=== PATIENT | female | born 1995 | race Two or more races ===

== ENCOUNTER 2016-10-02 12:13 | Emergency (ER) | payer MEDICAID ==
--- NOTE | 2016-10-02 12:50 | ER Document Report ---
ED Medical Screen (RME) - General Stated Complaint: LEG PAIN Mode of Arrival: Ambulatory Information source: Patient Notes: She presents to the emergency department with complaints of right leg pain. No other symptoms patient reports pain and back and leg I have greeted and performed a rapid initial assessment of this patient. A comprehensive ED assessment and evaluation of the patient, analysis of test results and completion of the medical decision making process will be conducted by additional ED providers. TRAVEL OUTSIDE OF THE [place] IN LAST 30 DAYS: No - Related Data Allergies/Adverse Reactions: No Known Allergies Allergy (Verified 06/15/15 23:43) Past Medical History Pulmonary Medical History: Reports: Hx Bronchitis Past Surgical History: Reports: Hx Tonsillectomy - Immunizations Hx Diphtheria, Pertussis, Tetanus Vaccination: Yes Physical Exam - Vital signs Vitals: Temp Pulse Resp BP Pulse Ox 98.1 F 76 16 141/61 H 100 10/02/16 12:18 10/02/16 12:18 10/02/16 12:18 10/02/16 12:18 10/02/16 12:18 Course - Vital Signs Vital signs: Temp Pulse Resp BP Pulse Ox 98.1 F 76 16 141/61 H 100 10/02/16 12:18 10/02/16 12:18 10/02/16 12:18 10/02/16 12:18 10/02/16 12:18
[2016-10-02] MEDS ORDERED: ACETAMINOPHEN 325 MG TABLET PO ONE (14:05)
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
[2016-10-02 15:07] VITALS: BP 138/74
== END 2016-10-02 15:06 | disposition home or self-care (01) ==
LOC: ER 12:13
DX: M79.661 Pain in right lower leg (principal)
CPT/HCPCS: 99283; 73552; J3490

== ENCOUNTER 2016-12-31 08:25 | Emergency (ER) | payer MEDICAID ==
[2016-12-31] MEDS ORDERED: ACETAMINOPHEN 325 MG TABLET PO ONE (09:43)
--- NOTE | 2016-12-31 09:44 | ER Document Report ---
HPI - HPI Patient complains to provider of: cough Onset: Other Onset/Duration: Persistent - 4 days Quality of pain: Achy Pain Level: 3 Context: Patient complains of a four-day history of cough. Patient reports low-grade fever 99.5 at home. Patient denies any sore throat or ear pain. Associated Symptoms: Nonproductive cough. denies: Fever Exacerbated by: Denies Relieved by: Denies Similar symptoms previously: Yes Recently seen / treated by doctor: No - ROS ROS below otherwise negative: Yes Systems Reviewed and Negative: Yes All other systems reviewed and negative - CONSTITUTIONAL Constitutional: DENIES: Fever - EENT EENT: DENIES: Congestion - CARDIOVASCULAR Cardiovascular: DENIES: Chest pain - RESPIRATORY Respiratory: REPORTS: Coughing. DENIES: Trouble Breathing - GASTROINTESTINAL Gastrointestinal: DENIES: Nausea, Patient vomiting, Diarrhea - MUSCULOSKELETAL Musculoskeletal: DENIES: Back Pain - DERM Skin Color: Normal, [place] Skin Problems: None Past Medical History - General Information source: Patient - Social History Smoking Status: Never Smoker Chew tobacco use (# tins/day): No Frequency of alcohol use: None Drug Abuse: None Occupation: none Lives with: Family Family History: Reviewed & Not Pertinent - Medical History Medical History: Negative Pulmonary Medical History: Reports: Hx Bronchitis Renal/ Medical History: Denies: Hx Peritoneal Dialysis Surgical Hx: Negative Past Surgical History: Reports: Hx Tonsillectomy - Immunizations Hx Diphtheria, Pertussis, Tetanus Vaccination: Yes Vertical Provider Document - CONSTITUTIONAL Agree With Documented VS: Yes Exam Limitations: No Limitations General Appearance: WD/WN, No Apparent Distress - INFECTION CONTROL TRAVEL OUTSIDE OF THE [place] IN LAST 30 DAYS: No - HEENT HEENT: Atraumatic, Normocephalic. negative: Pharyngeal Exudate, Pharyngeal Tenderness, Pharyngeal Erythema, Tympanic Membrane Red, Tympanic Membrane Bulging - NECK Neck: Normal Inspection, Supple. negative: Lymphadenopathy-Left, Lymphadenopathy-Right - RESPIRATORY Respiratory: No Respiratory Distress, Rhonchi. negative: Chest Non-Tender O2 Sat by Pulse Oximetry: 99 - CARDIOVASCULAR Cardiovascular: Regular Rate, Regular Rhythm, No Murmur - BACK Back: Normal Inspection. negative: CVA Tenderness-Right, CVA Tenderness-Left - MUSCULOSKELETAL/EXTREMETIES Musculoskeletal/Extremeties: MAEW - NEURO Level of Consciousness: Awake, Alert, Appropriate Motor/Sensory: No Motor Deficit - DERM Integumentary: Warm, Dry, No Rash Course - Vital Signs Vital signs: Temp Pulse Resp BP Pulse Ox 98.1 F 89 16 145/71 H 99 12/31/16 08:30 12/31/16 08:30 12/31/16 08:30 12/31/16 08:30 12/31/16 08:30 - Diagnostic Test Radiology reviewed: Reports reviewed Discharge - Discharge Clinical Impression: Elevated blood pressure reading Upper respiratory infection Qualifiers: URI type: unspecified URI Qualified Code(s): J06.9 - Acute upper respiratory infection, unspecified Chest pain Qualifiers: Chest pain type: unspecified Qualified Code(s): R07.9 - Chest pain, unspecified Condition: Stable Disposition: HOME, SELF-CARE Instructions: Upper Respiratory Illness ([facility]), Acetaminophen, Chest Wall Pain ( [facility]) Additional Instructions: Return immediately for any new or worsening symptoms Followup with your primary care provider, call tomorrow to make a followup appointment Your blood pressure was mildly elevated today, recheck with your primary doctor in 2 days to have this reevaluated Prescriptions: Benzonatate [Tessalon Perle 100 mg Capsule] 100 mg PO Q8HP PRN #20 cap PRN Reason: Naproxen [Naprosyn 250 Nmg Tablet] 1 tab PO BID #14 tablet Forms: Elevated Blood Pressure Referrals: [facility] [Provider Group] - Follow up tomorrow
[2016-12-31 10:54] VITALS: BP 129/65
== END 2016-12-31 10:54 | disposition home or self-care (01) ==
LOC: ER 08:25
DX: J06.9 Acute upper respiratory infection, unspecified (principal); R03.0 Elevated blood-pressure reading, without diagnosis of hypertension; R07.9 Chest pain, unspecified; R05 Cough; R50.9 Fever, unspecified
CPT/HCPCS: 99283; 71020; J3490

== ENCOUNTER 2017-02-07 16:07 | Emergency (ER) | payer MEDICAID, OTHER ==
[2017-02-07 16:32] VITALS: BP 147/68
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
[2017-02-07] MEDS ORDERED: ACETAMINOPHEN 325 MG TABLET PO ONE (20:55)
== END 2017-02-07 21:15 | disposition home or self-care (01) ==
LOC: ER 16:07
DX: S80.01XA Contusion of right knee, initial encounter (principal); M25.561 Pain in right knee; V47.6XXA Car passenger injured in collision with fixed or stationary object in traffic accident, initial encounter
CPT/HCPCS: 99283; 73562; J3490

== ENCOUNTER 2017-03-05 19:08 | Emergency (ER) | payer OTHER, MEDICAID ==
--- NOTE | 2017-03-05 19:44 | ER Document Report ---
ED Psych Disorder / Suicide - General Mode of Arrival: Ambulatory Information source: Patient TRAVEL OUTSIDE OF THE [place] IN LAST 30 DAYS: No - HPI Patient complains to provider of: Suicidal ideation, Suicidal plan Onset: This afternoon Situational problems related to: Parent Associated symptoms: Other - see notes above <CARLA PERRY - Last Filed: 03/05/17 19:49> <LANCE HOLCOMB - Last Filed: 03/05/17 21:37> - General Chief Complaint: Suicidal Ideation Stated Complaint: SUICIDAL IDEATION Time Seen by Provider: 03/05/17 19:35 Notes: 21 year old female with history of depression presents to the ED complaining of suicidal ideation and plan that started earlier this afternoon after having an argument with her mother. Patient reports that she was told to 'get out' by her mother. Patient states that she had a plan to take pills that were in her purse , but did not take anything. Patient has previously overdosed on 2 different medications last year. Patient is complaining of a headache and bruising to the right leg secondary to a fall that she suffered recently. Patient does not have a counselor and is not on any medications for her depression. Patient requests that her mother not be allowed to see her and would instead like to call her best friend. (CARLA PERRY) - Related Data Allergies/Adverse Reactions: dextromethorphan [From Delsym] Allergy (Verified 03/05/17 19:17) Past Medical History - General Information source: Patient - Social History Smoking Status: Unknown if Ever Smoked Family History: Reviewed & Not Pertinent Pulmonary Medical History: Reports: Hx Bronchitis Renal/ Medical History: Denies: Hx Peritoneal Dialysis Psychiatric Medical History: Reports: Hx Depression Past Surgical History: Reports: Hx Tonsillectomy - Immunizations Hx Diphtheria, Pertussis, Tetanus Vaccination: Yes <CARLA PERRY - Last Filed: 03/05/17 19:49> Review of Systems - Review of Systems Constitutional: No symptoms reported EENT: No symptoms reported Cardiovascular: No symptoms reported Respiratory: No symptoms reported Gastrointestinal: No symptoms reported Genitourinary: No symptoms reported Female Genitourinary: No symptoms reported Musculoskeletal: See HPI, Other - bruising to the right leg Skin: No symptoms reported Hematologic/Lymphatic: No symptoms reported Neurological/Psychological: See HPI, Headaches, Suicidal ideation - with plan -: Yes All other systems reviewed and negative <CARLA PERRY - Last Filed: 03/05/17 19:49> Physical Exam - Vital signs Interpretation: Normal - General General appearance: Appears well, Alert - HEENT Head: Normocephalic, Atraumatic Eyes: Normal Pupils: PERRL - Respiratory Respiratory status: No respiratory distress Chest status: Nontender Breath sounds: Normal Chest palpation: Normal - Cardiovascular Rhythm: Regular Heart sounds: Normal auscultation Murmur: No - Abdominal Inspection: Normal Distension: No distension Bowel sounds: Normal Tenderness: Nontender Organomegaly: No organomegaly - Back Back: Normal, Nontender - Extremities General upper extremity: Normal inspection, Nontender, Normal color, Normal ROM , Normal temperature General lower extremity: Normal inspection, Nontender, Normal color, Normal ROM , Normal temperature, Normal weight bearing. No: Benedict's sign - Neurological Neuro grossly intact: Yes Cognition: Normal Orientation: AAOx4 Riky Coma Scale Eye Opening: Spontaneous [place] Coma Scale Verbal: Oriented [place] Coma Scale Motor: Obeys Commands Riky Coma Scale Total: 15 Speech: Normal Motor strength normal: LUE, RUE, LLE, RLE Sensory: Normal - Psychological Associated symptoms: Flat affect, Tearful - Skin Skin Temperature: Warm Skin Moisture: Dry Skin Color: Normal <LANCE HOLCOMB - Last Filed: 03/05/17 21:37> - Vital signs Vitals: Temp Pulse Resp BP Pulse Ox 99.1 F 98 15 127/69 H 98 03/05/17 19:18 03/05/17 19:18 03/05/17 19:18 03/05/17 19:18 03/05/17 19:18 Course <CARLA PERRY - Last Filed: 03/05/17 19:49> - Laboratory Result Diagrams: 03/05/17 19:54 03/05/17 19:26 <LANCE HOLCOMB - Last Filed: 03/05/17 21:37> - Re-evaluation Re-evalutation: 03/05/17 Patient is a 21-year-old female who states that she is suicidal with a plan to overdose on pills. Patient states that she has done this in the past. Patient is not currently seeing anyone for mental health. She does not have a counselor. She is not on any medication. Patient is still tearful and states she is suicidal at this time. She is medically stable. Patient will be placed on involuntary commitment paperwork and be evaluated by mental health in the morning. (LANCE HOLCOMB) - Vital Signs Vital signs: Temp Pulse Resp BP Pulse Ox 99.1 F 98 15 127/69 H 98 03/05/17 19:18 03/05/17 19:18 03/05/17 19:18 03/05/17 19:18 03/05/17 19:18 - Laboratory Laboratory results interpreted by me: 03/05/17 19:26 AST 11 L Salicylates < 1.0 L Acetaminophen < 10 L Discharge <CARLA PERRY - Last Filed: 03/05/17 19:49> <LANCE HOLCOMB - Last Filed: 03/05/17 21:37> - Discharge Clinical Impression: Suicidal ideation Condition: Stable Disposition: PSYCH HOSP/UNIT Scribe Attestation: 03/05/17 21:37 I personally performed the services described in the documentation, reviewed and edited the documentation which was dictated to the scribe in my presence, and it accurately records my words and actions. (LANCE HOLCOMB) Scribe Documentation - Scribe Written by Brain:: Brain Paul, 03/05/20171952 acting as scribe for :: Shraddha <CARLA PERRY - Last Filed: 03/05/17 19:49>
[2017-03-05 20:48] LABS: ABSOLUTE EOSINOPHILS # (AUTO) 0.1 10^3/uL (0.0-0.6); ABSOLUTE LYMPHOCYTES (AUTO) 2.3 10^3/uL (0.5-4.7); ABSOLUTE MONOCYTES (AUTO) 0.5 10^3/uL (0.1-1.4); ABSOLUTE NEUT (AUTO) 5.6 10^3/uL (1.7-8.2); BASOPHILS % (AUTO) 0.3 % (0-2); EOSINOPHILS % (AUTO) 0.6 % (0-6); HEMATOCRIT 39.4 % (36.0-47.0); HEMOGLOBIN 13.3 g/dL (12.0-15.5); HGB HCT DIFFERENCE 0.5; LYMPHOCYTES % (AUTO) 27.2 % (13-45); MEAN CORPUSCULAR HEMOGLOBIN 28.1 pg (27.0-33.4); MEAN CORPUSCULAR HGB CONC 33.6 g/dL (32.0-36.0); MEAN CORPUSCULAR VOLUME 84 fl (80-97); MONOCYTES % (AUTO) 5.8 % (3-13); RED BLOOD COUNT 4.71 10^6/uL (3.72-5.28); RED CELL DISTRIBUTION WIDTH 12.5 % (11.5-14.0); SEGMENTED NEUTROPHILS % (AUTO) 66.1 % (42-78); WHITE BLOOD COUNT 8.4 10^3/uL (4.0-10.5)
[2017-03-05 20:53] LABS: ALANINE AMINOTRANSFERASE 27 U/L (9-52); ALBUMIN 4.3 g/dL (3.5-5.0); ALKALINE PHOSPHATASE 106 U/L (38-126); ANION GAP 13 (5-19); ASPARTATE AMINO TRANSFERASE 11 U/L (14-36); BILIRUBIN,DIRECT 0.3 mg/dL (0.0-0.4); BILIRUBIN,TOTAL 0.7 mg/dL (0.2-1.3); BLOOD UREA NITROGEN 9 mg/dL (7-20); CALCIUM 9.4 mg/dL (8.4-10.2); CARBON DIOXIDE 23 mmol/L (22-30); CHLORIDE 104 mmol/L (98-107); CREATININE RESULT 0.73 mg/dL (0.52-1.25); GLUCOSE 97 mg/dL (75-110); POTASSIUM 3.6 mmol/L (3.6-5.0); SODIUM 139.9 mmol/L (137-145); TOTAL PROTEIN 7.2 g/dL (6.3-8.2)
[2017-03-05 20:59] LABS: ALCOHOL < 10 mg/dL (NONE DETECTED)
--- NOTE | 2017-03-05 22:03 | EKG REPORT ---
SEVERITY:- BORDERLINE ECG - SINUS RHYTHM INFERIOR Q WAVES, PROBABLY NORMAL VARIATION : Confirmed by: Mary Reyna 05-Mar-2017 22:02:42
[2017-03-05] MEDS ORDERED: ACETAMINOPHEN 325 MG TABLET PO ONE (23:59)
[2017-03-06 01:36] LABS: AMORPHOUS SEDIMENT,URINE 2+ /HPF; APPEARANCE,URINE TURBID; BILIRUBIN,URINE NEGATIVE (NEGATIVE); GLUCOSE, URINE NEGATIVE (NEGATIVE); KETONES,URINE 20 mg/dL (NEGATIVE); LEUKOCYTE ESTERASE,URINE NEGATIVE (NEGATIVE); NITRITE,URINE NEGATIVE (NEGATIVE); PROTEIN,URINE 30 mg/dL (NEGATIVE); URINE SPECIFIC GRAVITY 1.033
[2017-03-06 01:47] LABS: URINE BARBITURATES SCREEN NEGATIVE; URINE METHADONE SCREEN NEGATIVE; URINE OPIATES LOW NEGATIVE; URINE PHENCYCLIDINE SCREEN NEGATIVE
--- NOTE | 2017-03-06 11:02 | PSYCHOLOGICAL NOTE ---
Psych Note - Psych Note Psych Note: Obtained collateral from Shamirrandall ([phone]), Karly Mother, who had called in to the nurses station to speak with patient. There is no family emergency but rather God Mother wanted to check on patient's status. Patient gave verbal consent to keep God Mother aware of care and treatment. God Mother identified yesterday patient had an argument with her mother and then became upset. She stated the argument was over patient's friend and the amount of time they hang out. Mother reportedly called patient and friend names and cussed at patient. She acknowledged she spoke to patient yesterday an hour after EMS arrived to the home. She stated patient's friend responded to patient first, patient had felt sick, and went to the bathroom. God Mother described patient as "mentally unstable, when things happen she cannot handle them, she freaks out, gets easily overwhelmed, is fragile, emotional which often results in crying, and takes everything to heart." She stated patient attempted to OD about a year ago which is why God Mother is on "high alert." She denied patient having previous MH hospitalization. She denied patient having outpatient MH services (to include medication management and therapy) and commented she needs to be linked up. She stated she does not think being around mother is "safe" for patient as "mother is often the root of the problem." She stated she does not want patient by herself or around mother. She stated patient just got a job and is supposed to start soon and she would like patient to focus on the positives. She identified patient could stay at the friend/support who was with patient last evening, [employer] ([phone]), [place] and God Mother is not even 20 minutes from there.
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
[2017-03-06 15:43] VITALS: BP 126/56
--- NOTE | 2017-03-06 16:36 | ER Document Report ---
Doctor's Note Notes: 03/06/17 16:35 Patient no longer feels suicidal, she is willing to contract for safety, we identified possible triggers in her life including stress from living with her mother. Patient will go home with a friend flores and plan on staying there for at least the next 2 nights. She is been referred to [facility] as an outpatient. IVC has been noted and she is discharged home
== END 2017-03-06 15:44 | disposition home or self-care (01) ==
LOC: ER 19:08
DX: F32.9 Major depressive disorder, single episode, unspecified (principal); R45.851 Suicidal ideations; R51 Headache; S80.11XA Contusion of right lower leg, initial encounter; W19.XXXA Unspecified fall, initial encounter; Z88.8 Allergy status to other drugs, medicaments and biological substances; Z62.820 Parent-biological child conflict
CPT/HCPCS: 93005; 99285; 36415; 80307 ×4; 84703; 85025; 80053; 81001; 93010; J3490

== ENCOUNTER 2017-03-18 22:15 | Emergency (ER) | payer MEDICAID, OTHER ==
--- NOTE | 2017-03-18 22:47 | ER Document Report ---
ED Psych Disorder / Suicide - General Information source: Patient TRAVEL OUTSIDE OF THE [place] IN LAST 30 DAYS: No - HPI Patient complains to provider of: Suicidal ideation, Suicidal attempt - cut arm with piece of glass <KENYATTA LORENZANA - Last Filed: 03/18/17 23:39> <PATRICE LOWRY - Last Filed: 03/19/17 05:16> - General Stated Complaint: SUICIDAL IDEATIONS Time Seen by Provider: 03/18/17 22:25 Notes: Patient is a 21 year old female who presents to the ED with complaints of cutting her left forearm with a piece of glass in an attempt to commit suicide. Patient states she has had suicidal ideations for a couple days and that today she reached her breaking point. Patient states she has self harmed in the past by taking pills but did not need any hospitalization at that time. Patient denies using any pills today. Patient states she started seeing a therapist on Thursday but has not been started on any medication. Patient states she is currently homeless and called to get into a long term but there were no beds. Patient states she recently took a home test as there is a chance of but states the test was negative although it was "too soon to tell". Patient denies any drugs or alcohol being in her system. Patient states her last tetanus shot was 2-3 months ago. No other concerns or complaints at this time. (KENYATTA LORENZANA) - Related Data Allergies/Adverse Reactions: dextromethorphan [From Delsym] Allergy (Verified 03/05/17 19:17) Past Medical History - General Information source: Patient - Social History Smoking Status: Unknown if Ever Smoked Family History: Reviewed & Not Pertinent Pulmonary Medical History: Reports: Hx Bronchitis Renal/ Medical History: Denies: Hx Peritoneal Dialysis Psychiatric Medical History: Reports: Hx Depression Past Surgical History: Reports: Hx Tonsillectomy - Immunizations Hx Diphtheria, Pertussis, Tetanus Vaccination: Yes <KENYATTA LORENZANA - Last Filed: 03/18/17 23:39> Review of Systems - Review of Systems Constitutional: No symptoms reported EENT: No symptoms reported Cardiovascular: No symptoms reported Respiratory: No symptoms reported Gastrointestinal: No symptoms reported Genitourinary: No symptoms reported Female Genitourinary: No symptoms reported Musculoskeletal: No symptoms reported Skin: No symptoms reported Hematologic/Lymphatic: No symptoms reported Neurological/Psychological: See HPI, Depression, Suicidal ideation <HARRIETTKENYATTA - Last Filed: 03/18/17 23:39> Physical Exam - General General appearance: Appears well, Alert In distress: None - HEENT Head: Normocephalic Eyes: Normal Extraocular movements intact: Yes Pupils: PERRL - Respiratory Respiratory status: No respiratory distress - Cardiovascular Rhythm: Regular - Abdominal Inspection: Normal Distension: No distension - Back Back: Normal - Extremities General upper extremity: Normal inspection, Normal ROM General lower extremity: Normal inspection, Normal ROM - Neurological Neuro grossly intact: Yes Cognition: Normal Orientation: AAOx4 Riky Coma Scale Eye Opening: Spontaneous [place] Coma Scale Verbal: Oriented [place] Coma Scale Motor: Obeys Commands [place] Coma Scale Total: 15 Speech: Normal - Psychological Associated symptoms: Normal affect, Normal mood - Skin Skin Temperature: Warm Skin Moisture: Dry Skin irregularity: other - hesitation star on left forearm Location of irregularity: Other - left forearm <HARRIETTKENYATTA - Last Filed: 03/18/17 23:39> Course - Laboratory Result Diagrams: 03/18/17 23:13 03/18/17 23:13 <HARRIETTKENYATTA - Last Filed: 03/18/17 23:39> - Laboratory Result Diagrams: 03/18/17 23:13 03/18/17 23:13 <PATRICE LOWRY - Last Filed: 03/19/17 05:16> - Re-evaluation Re-evalutation: 03/19/17 04:11 Presents emerged from a chief complaint of this depression took these glasses scratch tinajero on her arm and homelessness. Patient has never committed suicide or attempted a severe is attempted suicide in the past. She said one time she took some pills. She has no diagnosis from a psychiatric standpoint according to her. She is homeless and says she has not eaten in several days. She is awake alert with a GCS of 15 has a normal thought process and does not progress verbalized suicidal ideation she has small scratch tinajero on her wrist which are very minimal in nature. Laboratory evaluation vitals are stable gave her something to eat tox is negative EtOH is negative. I do not feel she needs to be IVC tonight and it is now 4:00 in the morning I have given her a sheet of paper where she can go directly to the walk-in mental health facility first thing in the morning. And discussed reasons for ED return sooner (PATRICE LOWRY) - Vital Signs Vital signs: Temp Pulse Resp BP Pulse Ox 98.6 F 74 18 120/62 99 03/19/17 04:25 03/19/17 04:25 03/19/17 00:12 03/19/17 04:25 03/19/17 04:25 - Laboratory Laboratory results interpreted by me: 03/18/17 03/19/17 23:13 00:20 AST 11 L Urine Protein 100 H Urine Ketones 20 H Urine Urobilinogen 2.0 H Ur Leukocyte Esterase LARGE H Salicylates < 1.0 L Acetaminophen < 10 L Discharge <KENYATTA LORENZANA - Last Filed: 03/18/17 23:39> <PATRICE LOWRY - Last Filed: 03/19/17 05:16> - Discharge Clinical Impression: self inflicted abrasion, depression, Homelessness Condition: Stable Disposition: HOME, SELF-CARE Additional Instructions: Depression Your evaluation reveals that you have mental depression. While symptoms may be vague, they often include disturbance of sleep, fatigue, loss of appetite , and general loss of interest in life. While depression may be a side effect of drugs, or a reaction to a major change in your life, many cases have no known cause. If depression is acute, and related to a major loss in your life, you can expect it to clear completely with time. If you have been depressed a long time , are prone to repeated bouts of depression or low mood, or have been thinking of suicide, get help. Depression can be treated with anti-depressant medication and counselling. Long-term depression will often take a few weeks to clear, even with appropriate medication. Follow-up care is important. Contact your physician, the hospital emergency center, crisis line, or your counsellor if you are losing control or having self-destructive thoughts. Given you a sheet of paper that she has all the walk-in clinic that you can go to tomorrow morning when they open up. Urinary Tract Infection Your evaluation indicates that you have a urinary tract infection. This is due to germs growing in the bladder. This is a common problem. This infection usually responds quickly to antibiotics. Your antibiotic should be taken exactly as prescribed. Drink plenty of fluids -- three to four quarts a day. Occasionally, a bladder anesthetic will be prescribed to help stop the feeling of urgency until the antibiotic has a chance to clear the infection. This may cause your urine to be dark orange. Certain urine infections require a culture. If the doctor obtained a culture, the results will be back in two days. You should call to see if a change in treatment is needed. A repeat urinalysis after you finish treatment is often recommended. The physician will let you know if further testing is required. Call the doctor if you develop fever, chills, flank pain, inability to urinate, or blood in the urine. Referrals: GIRISH WESTON MD [Primary Care Provider] - Follow up as needed Scribe Attestation: 03/19/17 04:12 I personally performed the services described in the documentation reviewed the documentation recorded by my scribe in my presence and it accurately and completely records my words and actions (PATRICE LOWRY) Scribe Documentation - Scribe Written by Sally:: sally Nicole, 03/18/2017, [id number] acting as scribe for :: Thaddeus <KENYATTA LORENZANA - Last Filed: 03/18/17 23:39>
[2017-03-18 23:32] LABS: ABSOLUTE EOSINOPHILS # (AUTO) 0.1 10^3/uL (0.0-0.6); ABSOLUTE LYMPHOCYTES (AUTO) 3.2 10^3/uL (0.5-4.7); ABSOLUTE MONOCYTES (AUTO) 0.5 10^3/uL (0.1-1.4); ABSOLUTE NEUT (AUTO) 3.6 10^3/uL (1.7-8.2); BASOPHILS % (AUTO) 0.4 % (0-2); EOSINOPHILS % (AUTO) 1.5 % (0-6); HEMOGLOBIN 13.7 g/dL (12.0-15.5); HGB HCT DIFFERENCE 0.1; LYMPHOCYTES % (AUTO) 42.7 % (13-45); MEAN CORPUSCULAR HEMOGLOBIN 28.2 pg (27.0-33.4); MEAN CORPUSCULAR HGB CONC 33.5 g/dL (32.0-36.0); MEAN CORPUSCULAR VOLUME 84 fl (80-97); MONOCYTES % (AUTO) 6.7 % (3-13); RED BLOOD COUNT 4.87 10^6/uL (3.72-5.28); RED CELL DISTRIBUTION WIDTH 13.2 % (11.5-14.0); SEGMENTED NEUTROPHILS % (AUTO) 48.7 % (42-78); WHITE BLOOD COUNT 7.4 10^3/uL (4.0-10.5)
[2017-03-18 23:55] LABS: ALANINE AMINOTRANSFERASE 38 U/L (9-52); ALKALINE PHOSPHATASE 83 U/L (38-126); ANION GAP 11 (5-19); ASPARTATE AMINO TRANSFERASE 11 U/L (14-36); BILIRUBIN,DIRECT 0.2 mg/dL (0.0-0.4); BILIRUBIN,TOTAL 0.6 mg/dL (0.2-1.3); BLOOD UREA NITROGEN 8 mg/dL (7-20); CALCIUM 9.4 mg/dL (8.4-10.2); CARBON DIOXIDE 25 mmol/L (22-30); CHLORIDE 106 mmol/L (98-107); CREATININE RESULT 0.78 mg/dL (0.52-1.25); GLUCOSE 78 mg/dL (75-110); POTASSIUM 4.3 mmol/L (3.6-5.0); SODIUM 142.4 mmol/L (137-145); TOTAL PROTEIN 6.8 g/dL (6.3-8.2)
[2017-03-18 23:58] LABS: ALCOHOL < 10 mg/dL (NONE DETECTED)
[2017-03-19 00:48] LABS: APPEARANCE,URINE CLOUDY; BILIRUBIN,URINE NEGATIVE (NEGATIVE); GLUCOSE, URINE NEGATIVE (NEGATIVE); KETONES,URINE 20 mg/dL (NEGATIVE); LEUKOCYTE ESTERASE,URINE LARGE (NEGATIVE); NITRITE,URINE NEGATIVE (NEGATIVE); PROTEIN,URINE 100 mg/dL (NEGATIVE); URINE SPECIFIC GRAVITY 1.034
[2017-03-19 00:56] LABS: URINE BARBITURATES SCREEN NEGATIVE; URINE METHADONE SCREEN NEGATIVE; URINE OPIATES LOW NEGATIVE; URINE PHENCYCLIDINE SCREEN NEGATIVE
[2017-03-19] MEDS ORDERED: NITROFURANTOIN MONOHYD/M-CRYST 100 MG CAPSULE PO ONE (01:52)
[2017-03-19 04:26] VITALS: BP 120/62
--- NOTE | 2017-03-19 08:14 | EKG REPORT ---
SEVERITY:- BORDERLINE ECG - SINUS RHYTHM PROBABLE LEFT ATRIAL ABNORMALITY : Confirmed by: Joseph Fang MD 19-Mar-2017 08:13:46
== END 2017-03-19 04:26 | disposition home or self-care (01) ==
LOC: ER 22:15
DX: S60.812A Abrasion of left wrist, initial encounter (principal); X78.0XXA Intentional self-harm by sharp glass, initial encounter; F32.9 Major depressive disorder, single episode, unspecified; Z59.0 Homelessness; Z88.8 Allergy status to other drugs, medicaments and biological substances
CPT/HCPCS: 93005; 99284; 36415; 80307 ×4; 85025; 80053; 81001; 93010; J3490; J8499

== ENCOUNTER 2017-11-28 13:11 | Emergency (ER) | payer SELFPAY ==
[2017-11-28] MEDS ORDERED: IBUPROFEN 800 MG TABLET PO ONE (14:16)
[2017-11-28] MEDS ORDERED: LORATADINE 10 MG TABLET PO ONE (14:16)
[2017-11-28] MEDS ORDERED: GUAIFENESIN 600 MG TABLET.SA PO ONE (14:16)
[2017-11-28] MEDS ORDERED: PSEUDOEPHEDRINE HCL 30 MG TABLET PO ONE (14:16)
--- NOTE | 2017-11-28 14:20 | ER Document Report ---
ED Flu Like - General Chief Complaint: Flu Symptoms Stated Complaint: COUGH,BODY ACHES,BACK PAIN Time Seen by Provider: 11/28/17 13:54 Mode of Arrival: Ambulatory Information source: Patient Notes: 22-year-old female presented ED for complaint of cough cold and flu symptoms since Thursday. She states she had cough congestion body aches night chills sore throat and rib pain from coughing. She is alert and oriented respirations even and unlabored speaking in full sentences when I assessed her. She states her last period was in the last 2 weeks. She states she went to work yesterday and her symptoms were such that she went home. TRAVEL OUTSIDE OF THE [place] IN LAST 30 DAYS: No - HPI Timing/Duration: Better Quality of pain: Achy Severity: Moderate Pain Level: 3 Associated symptoms: Body/muscle aches, Nonproductive cough, Rhinnorhea, Sinus pain/drainage, Shortness of breath, Slow to respond, Sore throat Similar symptoms previously: Yes Recently seen / treated by doctor: No - Related Data Allergies/Adverse Reactions: dextromethorphan [From [employer]] Allergy (Verified 11/28/17 13:16) Past Medical History - General Information source: Patient - Social History Smoking Status: Never Smoker Cigarette use (# per day): No Chew tobacco use (# tins/day): No Smoking Education Provided: No Frequency of alcohol use: None Drug Abuse: None Occupation: [employer] Family History: Reviewed & Not Pertinent Patient has suicidal ideation: No Patient has homicidal ideation: No - Past Medical History Cardiac Medical History: Reports: None Pulmonary Medical History: Reports: Hx Bronchitis EENT Medical History: Reports: None Renal/ Medical History: Denies: Hx Peritoneal Dialysis Psychiatric Medical History: Reports: Hx Depression Past Surgical History: Reports: Hx Tonsillectomy - Immunizations Hx Diphtheria, Pertussis, Tetanus Vaccination: Yes Review of Systems - Review of Systems Constitutional: Chills, Recent illness EENT: Nose congestion, Nose discharge, Sinus pressure, Sinus discharge, Throat pain Cardiovascular: No symptoms reported Respiratory: Cough, Hurts to breathe Gastrointestinal: No symptoms reported Genitourinary: No symptoms reported Female Genitourinary: No symptoms reported Musculoskeletal: No symptoms reported Skin: No symptoms reported Hematologic/Lymphatic: No symptoms reported Neurological/Psychological: No symptoms reported -: Yes All other systems reviewed and negative Physical Exam - Vital signs Vitals: Temp Pulse Resp BP Pulse Ox 99.9 F 103 H 18 139/75 H 98 11/28/17 13:35 11/28/17 13:35 11/28/17 13:35 11/28/17 13:35 11/28/17 13:35 Interpretation: Normal - General General appearance: Appears well, Alert - HEENT Head: Normocephalic, Atraumatic Eyes: Normal Pupils: PERRL - Respiratory Respiratory status: No respiratory distress Chest status: Nontender Breath sounds: Normal Chest palpation: Normal - Cardiovascular Rhythm: Regular Heart sounds: Normal auscultation Murmur: No - Abdominal Inspection: Normal Distension: No distension Bowel sounds: Normal Tenderness: Nontender Organomegaly: No organomegaly - Back Back: Normal, Nontender - Extremities General upper extremity: Normal inspection, Nontender, Normal color, Normal ROM , Normal temperature General lower extremity: Normal inspection, Nontender, Normal color, Normal ROM , Normal temperature, Normal weight bearing. No: Benedict's sign - Neurological Neuro grossly intact: Yes Cognition: Normal Orientation: AAOx4 Riky Coma Scale Eye Opening: Spontaneous Higgins Coma Scale Verbal: Oriented Higgins Coma Scale Motor: Obeys Commands Higgins Coma Scale Total: 15 Speech: Normal Motor strength normal: LUE, RUE, LLE, RLE Sensory: Normal - Psychological Associated symptoms: Normal affect, Normal mood - Skin Skin Temperature: Warm Skin Moisture: Dry Skin Color: Normal Course - Re-evaluation Re-evalutation: 11/28/17 17:10 Assessment consistent with an upper respiratory infection. Patient is afebrile respirations regular unlabored clear to auscultation. Patient was discharged home with instructions on cough and cold medicine. Patient was given a work note and instructed to follow-up with her primary doctor. - Vital Signs Vital signs: Temp Pulse Resp BP Pulse Ox 99.6 F 92 18 127/69 H 99 11/28/17 14:32 11/28/17 14:32 11/28/17 14:32 11/28/17 14:32 11/28/17 14:32 Discharge - Discharge Clinical Impression: URI (upper respiratory infection) Qualifiers: URI type: unspecified URI Qualified Code(s): J06.9 - Acute upper respiratory infection, unspecified Condition: Stable Disposition: HOME, SELF-CARE Prescriptions: Ibuprofen 600 mg PO Q6HP PRN #20 tablet PRN Reason: Forms: Elevated Blood Pressure, Return to Work Referrals: GIRISH WESTON MD [Primary Care Provider] - Follow up as needed
[2017-11-28 14:34] VITALS: BP 127/69
== END 2017-11-28 14:34 | disposition home or self-care (01) ==
LOC: ER 13:11
DX: J06.9 Acute upper respiratory infection, unspecified (principal); R05 Cough; R07.81 Pleurodynia; R68.83 Chills (without fever); M54.9 Dorsalgia, unspecified; J34.89 Other specified disorders of nose and nasal sinuses; R06.02 Shortness of breath; J02.9 Acute pharyngitis, unspecified; R09.81 Nasal congestion; Z88.8 Allergy status to other drugs, medicaments and biological substances
CPT/HCPCS: 99283

== ENCOUNTER 2018-06-24 00:57 | Emergency (ER) | payer MEDICAID, OTHER ==
[2018-06-24 01:03] VITALS: BP 132/70
--- NOTE | 2018-06-24 01:41 | ER Document Report ---
ED GI/ - General Chief Complaint: Vaginal Itching Stated Complaint: VAGINAL PAIN Time Seen by Provider: 06/24/18 01:11 Mode of Arrival: Ambulatory Information source: [employer] TRAVEL OUTSIDE OF THE [place] IN LAST 30 DAYS: No - HPI Patient complains to provider of: Vaginal pain Onset: Other - 3 days Timing/Duration: Persistent Quality of pain: Achy Severity at maximum: Mild Severity in ED: Mild Location: Vaginal Vaginal bleeding (Compared to normal period): None Sexual history: Active, Condoms Associated symptoms: Hard stool Relieved by: Denies Similar symptoms previously: No Recently seen / treated by doctor: No Notes: 06/24/18 01:39 Patient is a 23-year-old female presenting to the emergency room today complaining of 3-day history of vaginal irritation, complaining of swelling to her left labia as well, she reports having intercourse on Thursday with her significant other, she reports that she did use a condom and has not had unprotected sex, she denies any vaginal discharge, she does report dysuria, no hematuria, no nausea, vomiting or diarrhea - Related Data Allergies/Adverse Reactions: dextromethorphan [From [employer]] Allergy (Verified 11/28/17 13:16) Past Medical History - General Information source: Patient - Social History Smoking Status: Unknown if Ever Smoked Family History: Reviewed & Not Pertinent Pulmonary Medical History: Reports: Hx Bronchitis Renal/ Medical History: Denies: Hx Peritoneal Dialysis Psychiatric Medical History: Reports: Hx Depression Past Surgical History: Reports: Hx Tonsillectomy - Immunizations Hx Diphtheria, Pertussis, Tetanus Vaccination: Yes Review of Systems - Review of Systems Constitutional: No symptoms reported EENT: No symptoms reported Cardiovascular: No symptoms reported Respiratory: No symptoms reported Gastrointestinal: No symptoms reported Genitourinary: No symptoms reported Female Genitourinary: See HPI Musculoskeletal: No symptoms reported Skin: No symptoms reported Hematologic/Lymphatic: No symptoms reported Neurological/Psychological: No symptoms reported -: Yes All other systems reviewed and negative Physical Exam - Vital signs Vitals: Temp Pulse Resp BP Pulse Ox 98.6 F 90 20 132/70 H 97 06/24/18 01:02 06/24/18 01:02 06/24/18 01:02 06/24/18 01:02 06/24/18 01:02 - Notes Notes: - General General appearance: Appears well, Alert In distress: None - HEENT Head: Normocephalic, Atraumatic Eyes: Normal Conjunctiva: Normal Extraocular movements intact: Yes Eyelashes: Normal Pupils: PERRL - Respiratory Respiratory status: No respiratory distress - Cardiovascular Rhythm: Regular - Abdominal Inspection: Normal - Back Back: Normal - Extremities General upper extremity: Normal inspection General lower extremity: Normal inspection - Neurological Neuro grossly intact: Yes Orientation: AAOx4 Riky Coma Scale Eye Opening: Spontaneous [place] Coma Scale Verbal: Oriented Riky Coma Scale Motor: Obeys Commands [place] Coma Scale Total: 15 - Psychological Associated symptoms: Normal affect, Normal mood - Skin Skin Temperature: Warm Skin Moisture: Dry Skin Color: Normal - Genitourinary External exam: Normal Speculum exam: Vaginal discharge - Thick greenish colored vaginal discharge with fishy odor Vaginal bleeding: None Bimanuel exam: Normal Notes: External exam/labia normal, no swelling, no erythema, no lesions Course - Vital Signs Vital signs: Temp Pulse Resp BP Pulse Ox 98.6 F 90 20 132/70 H 97 06/24/18 01:02 06/24/18 01:02 06/24/18 01:02 06/24/18 01:02 06/24/18 01:02 - Laboratory Laboratory results interpreted by me: 06/24/18 01:29 Urine Protein 30 H Urine Ketones TRACE H Urine Blood MODERATE H Urine Urobilinogen 4.0 H Ur Leukocyte Esterase LARGE H Discharge - Discharge Clinical Impression: Bacterial vaginosis Urinary tract infection Qualifiers: Urinary tract infection type: site unspecified Hematuria presence: without hematuria Qualified Code(s): N39.0 - Urinary tract infection, site not specified Condition: Stable Disposition: HOME, SELF-CARE Instructions: Nitrofurantoin ([facility]), Urinary Tract Infection ([facility]), Vaginosis, Bacterial ([facility]) Additional Instructions: Follow up with your primary care provider in one to 2 days. Return to the emergency room immediately if symptoms worsen or any additional concerns. Prescriptions: Metronidazole [Flagyl 500 mg Tablet] 500 mg PO TID #30 tablet Nitrofurantoin/Nitrofuran Mac [Macrobid 100 mg Capsule] 100 mg PO BID #20 capsule Referrals: GIRISH WESTON MD [ACTIVE STAFF] - Follow up as needed
[2018-06-24 01:49] LABS: EPITHELIALS (WET MOUNT) 3+ EPITHELIALS SEEN; T.VAGINALIS (WET MOUNT) NO TRICHOMONAS SEEN; WBCS (WET MOUNT) NO WBCS SEEN; YEAST (WET MOUNT) NO YEAST SEEN
[2018-06-24 01:50] LABS: APPEARANCE,URINE CLOUDY; BILIRUBIN,URINE NEGATIVE (NEGATIVE); COLOR,URINE AMBER; GLUCOSE, URINE NEGATIVE (NEGATIVE); KETONES,URINE TRACE mg/dL (NEGATIVE); LEUKOCYTE ESTERASE,URINE LARGE (NEGATIVE); NITRITE,URINE NEGATIVE (NEGATIVE); PROTEIN,URINE 30 mg/dL (NEGATIVE); URINE SPECIFIC GRAVITY 1.032
[2018-06-24 03:11] LABS: CHLAM PCR NOT DETECTED (NOT DETECT); GON PCR NOT DETECTED (NOT DETECT)
== END 2018-06-24 02:15 | disposition home or self-care (01) ==
LOC: ER 00:57
DX: N39.0 Urinary tract infection, site not specified (principal); N76.0 Acute vaginitis; B96.89 Other specified bacterial agents as the cause of diseases classified elsewhere; L29.2 Pruritus vulvae
CPT/HCPCS: 81001; 81025; 87210; 87491; 87591; 99283

== ENCOUNTER 2018-06-29 10:09 | Emergency (ER) | payer OTHER ==
[2018-06-29] MEDS ORDERED: LIDOCAINE 2% VISCOUS SOLN 20 ML UDCUP PO ONE (10:37)
[2018-06-29] MEDS ORDERED: IBUPROFEN 800 MG TABLET PO ONE (10:37)
--- NOTE | 2018-06-29 10:37 | ER Document Report ---
HPI - HPI Patient complains to provider of: Sore throat Onset: Other - 3 days Onset/Duration: Persistent Quality of pain: Achy Pain Level: 3 Context: Patient presents complaining of sore throat for the past 3 days. Patient denies any fever. Associated Symptoms: Sore throat. denies: Earache, Fever Exacerbated by: Denies Relieved by: Denies Similar symptoms previously: Yes Recently seen / treated by doctor: No - ROS ROS below otherwise negative: Yes Systems Reviewed and Negative: Yes All other systems reviewed and negative - CONSTITUTIONAL Constitutional: DENIES: Fever - EENT EENT: REPORTS: Sore Throat - RESPIRATORY Respiratory: DENIES: Coughing - GASTROINTESTINAL Gastrointestinal: DENIES: Nausea, Patient vomiting - DERM Skin Color: Normal Skin Problems: None Past Medical History - General Information source: Patient - Social History Smoking Status: Never Smoker Frequency of alcohol use: None Drug Abuse: None Occupation: Housekeeping Lives with: Family Family History: Reviewed & Not Pertinent Pulmonary Medical History: Reports: Hx Bronchitis Renal/ Medical History: Denies: Hx Peritoneal Dialysis Psychiatric Medical History: Reports: Hx Depression Past Surgical History: Reports: Hx Tonsillectomy - Immunizations Hx Diphtheria, Pertussis, Tetanus Vaccination: Yes Vertical Provider Document - CONSTITUTIONAL Agree With Documented VS: Yes Exam Limitations: No Limitations General Appearance: WD/WN, No Apparent Distress - INFECTION CONTROL TRAVEL OUTSIDE OF THE [place] IN LAST 30 DAYS: No - HEENT HEENT: Atraumatic, Normocephalic, Pharyngeal Tenderness, Pharyngeal Erythema. negative: Pharyngeal Exudate - NECK Neck: Normal Inspection, Supple. negative: Lymphadenopathy-Left, Lymphadenopathy-Right - RESPIRATORY Respiratory: Breath Sounds Normal, No Respiratory Distress - CARDIOVASCULAR Cardiovascular: Regular Rate, Regular Rhythm - MUSCULOSKELETAL/EXTREMETIES Musculoskeletal/Extremeties: MAEW - NEURO Level of Consciousness: Awake, Alert, Appropriate Motor/Sensory: No Motor Deficit - DERM Integumentary: Warm, Dry, No Rash Course - Re-evaluation Re-evalutation: 06/29/18 11:40 Respirations even and unlabored, no concern for any [employer]. No potential airway compromise. Patient nontoxic in appearance. - Vital Signs Vital signs: Temp Pulse Resp BP Pulse Ox 98.4 F 90 14 125/67 96 06/29/18 10:14 06/29/18 10:14 06/29/18 10:14 06/29/18 10:14 06/29/18 10:14 - Laboratory Laboratory results interpreted by me: 06/29/18 11:40 Labs- Last Values Group A Strep Rapid NEGATIVE (NEGATIVE) 06/29/18 10:30 Discharge - Discharge Clinical Impression: Sore throat (viral) Condition: Stable Disposition: HOME, SELF-CARE Instructions: Acetaminophen, Sore Throat ([facility]) Additional Instructions: Return immediately for any new or worsening symptoms Followup with your primary care provider, call tomorrow to make a followup appointment Cultures pending, we will call if you need any different treatment Prescriptions: Naproxen [Naprosyn 250 Nmg Tablet] 1 tab PO BID #14 tablet Forms: Return to Work Referrals: [facility] [Provider Group] - Follow up as needed
[2018-06-29 11:52] VITALS: BP 127/69
== END 2018-06-29 11:52 | disposition home or self-care (01) ==
LOC: ER 10:09
DX: J02.8 Acute pharyngitis due to other specified organisms (principal); B96.89 Other specified bacterial agents as the cause of diseases classified elsewhere; Z90.89 Acquired absence of other organs
CPT/HCPCS: 99283; 87070; 87880; 87077; J3490

== ENCOUNTER 2018-07-29 00:22 | Emergency (ER) | payer OTHER ==
[2018-07-29] MEDS ORDERED: IBUPROFEN 600 MG TABLET PO ONE (00:33)
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
[2018-07-29 00:41] VITALS: BP 140/68
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
== END 2018-07-29 02:05 | disposition home or self-care (01) ==
LOC: ER 00:22
DX: S16.1XXA Strain of muscle, fascia and tendon at neck level, initial encounter (principal); S80.02XA Contusion of left knee, initial encounter; M54.2 Cervicalgia; M25.512 Pain in left shoulder; M25.562 Pain in left knee; M79.18 Myalgia, other site; V49.40XA Driver injured in collision with unspecified motor vehicles in traffic accident, initial encounter; Z88.8 Allergy status to other drugs, medicaments and biological substances
CPT/HCPCS: 72125; 99284

== ENCOUNTER 2018-09-16 18:36 | Emergency (ER) | payer OTHER ==
--- NOTE | 2018-09-16 18:50 | ER Document Report ---
ED GI/ - General Chief Complaint: Abdominal Pain Stated Complaint: ABDOMINAL PAIN Time Seen by Provider: 09/16/18 18:48 Mode of Arrival: Ambulatory Information source: Patient Notes: Chief complaint: abdominal pain: History of complain:( obtained from----patient) 23 years old female presents today with suprapubic pain dysuria and frequency. No fever chills or other constitutional symptoms since this morning. Onset: As above gradual Duration: One day Severity: Mild Quality: Crampy Context: Unknown Exacerbating factor and relieving factors: None REVIEW OF SYSTEMS: CONSTITUTIONAL : Denies fever, chills, or sweats. Denies recent illness. EENT: Denies eye, ear, throat, or mouth pain or symptoms. Denies nasal or sinus congestion or discharge. Denies throat, tongue, or mouth swelling or difficulty swallowing. CARDIOVASCULAR: Denies chest pain. Denies palpitations or racing or irregular heart beat. Denies ankle edema. RESPIRATORY: Denies cough, cold, or chest congestion. Denies shortness of breath, difficulty breathing, or wheezing. GASTROINTESTINAL: Denies distention. Denies nausea, vomiting, or diarrhea. Denies blood in vomitus, stools, or per rectum. Denies black, tarry stools. Denies constipation. GENITOURINARY: Denies difficulty urinating, painful urination, burning, frequency, blood in urine, or discharge. FEMALE GENITOURINARY: Denies vaginal bleeding, heavy or abnormal periods, irregular periods. Denies vaginal discharge or odor. MUSCULOSKELETAL: Denies back or neck pain or stiffness. Denies joint pain or swelling. SKIN: Denies rash, lesions or sores. HEMATOLOGIC : Denies easy bruising or bleeding. LYMPHATIC: Denies swollen, enlarged glands. NEUROLOGICAL: Denies confusion or altered mental status. Denies passing out or loss of consciousness. Denies dizziness or lightheadedness. Denies headache. Denies weakness or paralysis or loss of use of either side. Denies problems with gait or speech. Denies sensory loss, numbness, or tingling. Denies seizures. PSYCHIATRIC: Denies anxiety or stress. Denies depression, suicidal ideation, or homicidal ideation. ALL OTHER SYSTEMS REVIEWED AND NEGATIVE. PHYSICAL EXAMINATION: GENERAL: Well-appearing, well-nourished and in no acute distress. HEAD: Atraumatic, normocephalic. EYES: Pupils equal round and reactive to light, extraocular movements intact, conjunctiva are normal. ENT: Nares patent, oropharynx clear without exudates. Moist mucous membranes. NECK: Normal range of motion, supple without lymphadenopathy LUNGS: Breath sounds clear to auscultation bilaterally and equal. No wheezes rales or rhonchi. HEART: Regular rate and rhythm without murmurs ABDOMEN: Soft, nontender, nondistended abdomen. No guarding, no rebound. No masses appreciated. Female : deferred Musculoskeletal: Normal range of motion, no pitting or edema. No cyanosis. NEUROLOGICAL: Cranial nerves grossly intact. Normal speech, normal gait. Normal sensory, motor exams PSYCH: Normal mood, normal affect. SKIN: Warm, Dry, normal turgor, no rashes or lesions noted. Dictation was performed using [employer] voice recognition software TRAVEL OUTSIDE OF THE [place] IN LAST 30 DAYS: No - HPI Notes: 09/16/18 18:49 Dictated - Related Data Allergies/Adverse Reactions: dextromethorphan [From [employer]] Allergy (Verified 09/16/18 18:37) Past Medical History - Social History Smoking Status: Never Smoker Frequency of alcohol use: Rare Lives with: Family Family History: Reviewed & Not Pertinent Pulmonary Medical History: Reports: Hx Bronchitis Renal/ Medical History: Denies: Hx Peritoneal Dialysis Psychiatric Medical History: Reports: Hx Depression Past Surgical History: Reports: Hx Tonsillectomy - Immunizations Hx Diphtheria, Pertussis, Tetanus Vaccination: Yes Review of Systems - Review of Systems Notes: Dictated Physical Exam - Vital signs Vitals: Temp Pulse Resp BP Pulse Ox 98.7 F 86 18 130/70 H 98 09/16/18 18:42 09/16/18 18:42 09/16/18 18:42 09/16/18 18:42 09/16/18 18:42 - Notes Notes: Dictated Course - Vital Signs Vital signs: Temp Pulse Resp BP Pulse Ox 98.7 F 86 18 130/70 H 98 09/16/18 18:42 09/16/18 18:42 09/16/18 18:42 09/16/18 18:42 09/16/18 18:42 - Laboratory Laboratory results interpreted by me: 09/16/18 19:34 Urine Protein 30 H Urine Ketones TRACE H Urine Bilirubin SMALL H Urine Urobilinogen 4.0 H Ur Leukocyte Esterase SMALL H Discharge - Discharge Clinical Impression: UTI (urinary tract infection) Qualifiers: Urinary tract infection type: acute cystitis Hematuria presence: without hematuria Qualified Code(s): N30.00 - Acute cystitis without hematuria Disposition: HOME, SELF-CARE Instructions: Urinary Tract Infection ([facility]) Prescriptions: Ciprofloxacin HCl [Cipro 500 mg Tablet] 500 mg PO BID #20 tablet Phenazopyridine HCl [Azo Urinary Pain Relief] 97.5 mg PO TID #30 tablet Forms: Return to Work
[2018-09-16 20:23] LABS: APPEARANCE,URINE CLOUDY; BILIRUBIN,URINE SMALL (NEGATIVE); GLUCOSE, URINE NEGATIVE (NEGATIVE); KETONES,URINE TRACE mg/dL (NEGATIVE); LEUKOCYTE ESTERASE,URINE SMALL (NEGATIVE); NITRITE,URINE NEGATIVE (NEGATIVE); PROTEIN,URINE 30 mg/dL (NEGATIVE); URINE SPECIFIC GRAVITY 1.028
[2018-09-16 20:25] LABS: COLOR,URINE DARK YELLOW
[2018-09-16 21:59] VITALS: BP 123/65
== END 2018-09-16 21:41 | disposition home or self-care (01) ==
LOC: ER 18:36
DX: N30.00 Acute cystitis without hematuria (principal); R10.30 Lower abdominal pain, unspecified; R30.0 Dysuria; R35.0 Frequency of micturition
CPT/HCPCS: 81001; 81025; 99284

== ENCOUNTER 2018-09-19 20:05 | Emergency (ER) | payer OTHER ==
[2018-09-19] MEDS ORDERED: ACETAMINOPHEN 325 MG TABLET PO ONE (21:14)
[2018-09-19] MEDS ORDERED: IBUPROFEN 600 MG TABLET PO ONE (21:14)
--- NOTE | 2018-09-19 21:16 | ER Document Report ---
HPI - HPI Time Seen by Provider: 09/19/18 21:09 Pain Level: 3 Context: Patient is a 23-year-old female who presents emergency department with a chief complaint of body aches and sore throat for the past 4 days. She started with a sore throat and today she had body aches. She states that her throat is sore, nothing makes her sore throat better. She does have associated rhinorrhea. Her rhinorrhea is clear. She has not taken any medications for the sore throat or body aches. She denies any past medical history. - ROS Notes: REVIEW OF SYSTEMS: CONSTITUTIONAL : Denies recent illness. Denies recent unintentional weight loss. HPI EENT: See HPI CARDIOVASCULAR: Denies chest pain. RESPIRATORY: Denies shortness of breath, cough, congestion, difficulty breathing, or wheezing. GASTROINTESTINAL: Denies nausea, vomiting, and diarrhea. Denies abdominal pain. Denies constipation. GENITOURINARY: Denies difficulty urinating, burning, blood in urine, urgency or frequency. MUSCULOSKELETAL: Denies neck and back pain. Denies joint pain or swelling. SKIN: Denies rash, itchiness, or lesions HEMATOLOGIC : Denies easy bruising or bleeding. LYMPHATIC: Denies swollen, painful, enlarged glands. NEUROLOGICAL: Denies no numbness or tingling denies weakness. Denies headache. Denies altered mental status. Denies alteration in speech. PSYCHIATRIC: Denies stress, anxiety, alteration in sleep patterns, or depress ion. All other systems reviewed and negative. - REPRODUCTIVE Reproductive: DENIES: : Past Medical History - General Information source: Patient - Social History Smoking Status: Never Smoker Family History: Reviewed & Not Pertinent Patient has suicidal ideation: No Patient has homicidal ideation: No Pulmonary Medical History: Reports: Hx Bronchitis Renal/ Medical History: Denies: Hx Peritoneal Dialysis Psychiatric Medical History: Reports: Hx Depression Past Surgical History: Reports: Hx Tonsillectomy - Immunizations Hx Diphtheria, Pertussis, Tetanus Vaccination: Yes Vertical Provider Document - CONSTITUTIONAL Notes: PHYSICAL EXAMINATION: GENERAL: Appears well, healthy, well-nourished, no acute distress. HEAD: Normocephalic, atraumatic. EYES: PERRL, conjunctiva normal, all extraocular movements intact, sclera nonicteric ENT: Moist mucous membranes. Rhinorrhea noted. NECK: Supple, no noticeable swelling, redness, rash. Normal range of motion. LUNGS: Equal breath sounds bilaterally and clear to auscultation. No wheezes rales or rhonchi. CARDIOVASCULAR: S1-S2, regular rate, regular rhythm. Radial pulses 2+, normal. ABDOMEN: Normoactive bowel sounds. Soft, nontender, no guarding, no rebound tenderness, and no masses palpated. EXTREMITIES: Normal strength and range of motion, no pitting or edema. No cyanosis. NEUROLOGICAL: Moves all extremities upon command. Strength 5/5 in all extremities. PSYCH: Normal mood, normal affect. SKIN: Warm, dry. No rash, lesions, ulcerations noted. Normal skin turgor. - INFECTION CONTROL TRAVEL OUTSIDE OF THE [place] IN LAST 30 DAYS: No Course - Re-evaluation Re-evalutation: 09/19/18 22:12 Patient states that she feels better with her Motrin and Tylenol. Her influenza and rapid strep tests were negative. She will be sent home on Motrin and Tylenol for symptom control. She also be started on Zyrtec to help with her rhinorrhea. I do not suspect the patient has any life-threatening etiology at this time. Do not suspect she has pneumonia, influenza. verbal discharge instr uctions were given to the patient. They verbalized understanding. They are stable for discharge. Documentation was completed using voice recognition software, therefore there may be some unintended grammatical or punctual errors. - Vital Signs Vital signs: Temp Pulse Resp BP Pulse Ox 98.2 F 93 18 143/75 H 99 09/19/18 20:09 09/19/18 20:09 09/19/18 20:09 09/19/18 20:09 09/19/18 20:09 Discharge - Discharge Clinical Impression: Body aches, Sore throat Upper respiratory infection Qualifiers: URI type: unspecified URI Qualified Code(s): J06.9 - Acute upper respiratory infection, unspecified Condition: Stable Disposition: HOME, SELF-CARE Instructions: Acetaminophen, Viral Syndrome ([facility]) Additional Instructions: Your symptoms are most likely due to a viral infection it should resolve over the next 7-14 days. You should take [id number] guanfacine per bottle instructions to help thin the mucus. You may take [id number] cetirizine (Zyrtec), to help with the drainage in the back of your throat. You may also use tylenol or ibuprofen as needed for aches and thorat discomfort. Please be sure to drink plenty of fluids and get rest. Return to the emergency department he began having difficulty breathing, chest pain, persistent vomiting, or any other symptoms that are concerning to you. Forms: Return to Work
[2018-09-19 21:50] LABS: A TYPE INFLUENZA AG NEGATIVE (NEGATIVE); B INFLUENZA AG NEGATIVE (NEGATIVE)
[2018-09-19 22:23] VITALS: BP 129/73
== END 2018-09-19 22:25 | disposition home or self-care (01) ==
LOC: ER 20:05
DX: J02.9 Acute pharyngitis, unspecified (principal); J06.9 Acute upper respiratory infection, unspecified; J34.89 Other specified disorders of nose and nasal sinuses; R52 Pain, unspecified
CPT/HCPCS: 87070; 87804; 87880; 99282

== ENCOUNTER 2018-10-07 09:41 | Emergency (ER) | payer OTHER ==
[2018-10-07 09:56] VITALS: BP 136/77
[2018-10-07] MEDS ORDERED: ONDANSETRON 4 MG TAB.RAPDIS PO ONE (10:19)
[2018-10-07] MEDS ORDERED: DICYCLOMINE HCL 20 MG TABLET PO ONE (10:19)
--- NOTE | 2018-10-07 10:22 | ER Document Report ---
ED General - General Chief Complaint: Nausea Stated Complaint: STOMACH PAIN, NAUSEA, DIARRHEA Time Seen by Provider: 10/07/18 10:12 TRAVEL OUTSIDE OF THE [place] IN LAST 30 DAYS: No - HPI Patient complains to provider of: Abdominal cramping nausea vomiting diarrhea Notes: Patient coming in for the above-stated symptoms ongoing since Thursday. Patient states it happened after she ate some pork rib meat. Patient states yesterday was able to tolerate a pork chop. Patient is continued to have symptoms. Patient denies any recent antibiotics denies any travel denies any fever chills chest pain. Patient denies any trauma patient resting company upon my evaluation denies any medical issues that she is taking current medications 4. - Related Data Allergies/Adverse Reactions: dextromethorphan [From [employer]] Allergy (Verified 09/16/18 18:37) Past Medical History - Social History Smoking Status: Unknown if Ever Smoked Family History: Reviewed & Not Pertinent Patient has suicidal ideation: No Patient has homicidal ideation: No Pulmonary Medical History: Reports: Hx Bronchitis Renal/ Medical History: Denies: Hx Peritoneal Dialysis Psychiatric Medical History: Reports: Hx Depression Past Surgical History: Reports: Hx Tonsillectomy - Immunizations Hx Diphtheria, Pertussis, Tetanus Vaccination: Yes Review of Systems - Review of Systems Constitutional: No symptoms reported EENT: No symptoms reported Cardiovascular: No symptoms reported Respiratory: No symptoms reported Gastrointestinal: Abdominal pain, Diarrhea, Nausea, Vomiting Genitourinary: No symptoms reported Female Genitourinary: No symptoms reported Musculoskeletal: No symptoms reported Skin: No symptoms reported Hematologic/Lymphatic: No symptoms reported Neurological/Psychological: No symptoms reported -: Yes All other systems reviewed and negative Physical Exam - Vital signs Vitals: Temp Pulse Resp BP Pulse Ox 98.3 F 75 14 136/77 H 100 10/07/18 09:52 10/07/18 09:52 10/07/18 09:52 10/07/18 09:52 10/07/18 09:52 Interpretation: Normal - General General appearance: Appears well, Alert - HEENT Head: Normocephalic, Atraumatic Eyes: Normal Pupils: PERRL - Respiratory Respiratory status: No respiratory distress Chest status: Nontender Breath sounds: Normal Chest palpation: Normal - Cardiovascular Rhythm: Regular Heart sounds: Normal auscultation Murmur: No - Abdominal Inspection: Normal Distension: No distension Bowel sounds: Normal Tenderness: Nontender Organomegaly: No organomegaly - Back Back: Normal, Nontender - Extremities General upper extremity: Normal inspection, Nontender, Normal color, Normal ROM, Normal temperature General lower extremity: Normal inspection, Nontender, Normal color, Normal ROM, Normal temperature, Normal weight bearing. No: Benedict's sign - Neurological Neuro grossly intact: Yes Cognition: Normal Orientation: AAOx4 Riky Coma Scale Eye Opening: Spontaneous [place] Coma Scale Verbal: Oriented [place] Coma Scale Motor: Obeys Commands [place] Coma Scale Total: 15 Speech: Normal Motor strength normal: LUE, RUE, LLE, RLE Sensory: Normal - Psychological Associated symptoms: Normal affect, Normal mood - Skin Skin Temperature: Warm Skin Moisture: Dry Skin Color: Normal Course - Re-evaluation Re-evalutation: 10/07/18 10:23 The patient presents with abdominal pain nausea vomiting diarrhea without signs of peritonitis or other life-threatening or serious etiology. The patient appears stable for discharge and has been instructed to return immediately if the symptoms worsen in any way, or in 8-12hr if not improved for re-evaluation. The patient has been instructed to return if the symptoms worsen or change in any way. - Vital Signs Vital signs: Temp Pulse Resp BP Pulse Ox 98.3 F 75 14 136/77 H 100 10/07/18 09:52 10/07/18 09:52 10/07/18 09:52 10/07/18 09:52 10/07/18 09:52 Discharge - Discharge Clinical Impression: Abdominal cramping, Nausea vomiting and diarrhea Condition: Good Disposition: HOME, SELF-CARE Instructions: Diarrhea, Nonspecific ([facility]), Gastroenteritis (adult) ([facility]), Vomiting ([facility]) Additional Instructions: Your symptoms are likely due to a virus. However, it is important that you manuela nue to monitor for any concerning symptoms including inability to tolerate oral fluids, less than 2 urinations in a 24 hour period, and lethargy Please continue to offer oral solutions such as Pedialyte, water, gatorade. It is okay if you do not want to eat over the next several days but it is important that they continue to drink fluids. You may also provide a medication such as ibuprofen (Motrin) or acetaminophen (Tylenol) per box instructions for fever. Please also follow-up with your doctor in the next several days. Please take the medications given to you as prescribed. Prescriptions: Dicyclomine HCl [Bentyl 20 mg Tablet] 20 mg PO QID #30 tablet Ondansetron [Zofran Odt 4 mg Tablet] 1 - 2 tab PO Q4H PRN #30 tab.rapdis PRN Reason: For Nausea/Vomiting Forms: Return to Work
== END 2018-10-07 10:25 | disposition home or self-care (01) ==
LOC: ER 09:41
DX: R11.2 Nausea with vomiting, unspecified (principal); R19.7 Diarrhea, unspecified; R10.9 Unspecified abdominal pain; Z88.8 Allergy status to other drugs, medicaments and biological substances
CPT/HCPCS: 99283; J3490; S0119

== ENCOUNTER 2018-12-19 12:11 | Emergency (ER) | payer OTHER ==
--- NOTE | 2018-12-19 12:29 | ER Document Report ---
ED Medical Screen (RME) - General Chief Complaint: Vaginal Pain Stated Complaint: POSSIBLE ABSCESS Time Seen by Provider: 12/19/18 12:25 Mode of Arrival: Ambulatory Information source: Patient Notes: Patient is an otherwise healthy 23-year-old female who presents to the emergency department with possible labial abscess. I saw a picture of this in triage and appears to be a very small area of concern. Patient denies history of MRSA or history of abscesses. Exam: Patient alert, oriented and in no acute distress. I have greeted and performed a rapid initial assessment of this patient. A comprehensive ED assessment and evaluation of the patient, analysis of test results and completion of the medical decision making process will be conducted by additional ED providers. Dictation of this chart was performed using voice recognition software; therefore, there may be some unintended grammatical errors. TRAVEL OUTSIDE OF THE [place] IN LAST 30 DAYS: No - Related Data Allergies/Adverse Reactions: dextromethorphan [From [employer]] Allergy (Verified 09/16/18 18:37) Past Medical History - Social History Chew tobacco use (# tins/day): No Frequency of alcohol use: None Drug Abuse: None Pulmonary Medical History: Reports: Hx Bronchitis Renal/ Medical History: Denies: Hx Peritoneal Dialysis Psychiatric Medical History: Reports: Hx Depression Past Surgical History: Reports: Hx Tonsillectomy - Immunizations Hx Diphtheria, Pertussis, Tetanus Vaccination: Yes Physical Exam - Vital signs Vitals: Temp Pulse Resp BP Pulse Ox 98.1 F 102 H 16 119/72 97 12/19/18 12:14 12/19/18 12:14 12/19/18 12:14 12/19/18 12:14 12/19/18 12:14 Course - Vital Signs Vital signs: Temp Pulse Resp BP Pulse Ox 98.1 F 102 H 16 119/72 97 12/19/18 12:14 12/19/18 12:14 12/19/18 12:14 12/19/18 12:14 12/19/18 12:14
--- NOTE | 2018-12-19 13:04 | ER Document Report ---
ED GI/ - General Chief Complaint: Vaginal Pain Stated Complaint: POSSIBLE ABSCESS Time Seen by Provider: 12/19/18 12:25 Mode of Arrival: Ambulatory Information source: Patient TRAVEL OUTSIDE OF THE [place] IN LAST 30 DAYS: No - HPI Patient complains to provider of: Vaginal pain Onset: Yesterday Notes: 12/19/18 13:00 Patient here with complaints of blister area to the right vaginal area. Patient is here with complaints of seen a blister type lesion to the right labial area noticed yesterday. Mildly tender. No fevers. No dysuria or hematuria. No abdominal pain. No nausea, vomiting, diarrhea. She states that it is mildly tender, constant, worse with touching around the area, better when not. She does have a history of genital herpes. She denies any drainage from this area. No vaginal bleeding or vaginal discharge. No chest pain or shortness of breath. No numbness, tingling, weakness. She denies any other complaints at this time. - Related Data Allergies/Adverse Reactions: dextromethorphan [From [employer]] Allergy (Verified 09/16/18 18:37) Past Medical History - General Information source: Patient - Social History Smoking Status: Never Smoker Chew tobacco use (# tins/day): No Frequency of alcohol use: None Drug Abuse: None Family History: Reviewed & Not Pertinent Patient has suicidal ideation: No Patient has homicidal ideation: No Pulmonary Medical History: Reports: Hx Bronchitis Renal/ Medical History: Denies: Hx Peritoneal Dialysis Psychiatric Medical History: Reports: Hx Depression Past Surgical History: Reports: Hx Tonsillectomy - Immunizations Hx Diphtheria, Pertussis, Tetanus Vaccination: Yes Review of Systems - Review of Systems -: Yes All other systems reviewed and negative Physical Exam - Vital signs Vitals: Temp Pulse Resp BP Pulse Ox 98.1 F 102 H 16 119/72 97 12/19/18 12:14 12/19/18 12:14 12/19/18 12:14 12/19/18 12:14 12/19/18 12:14 - Notes Notes: GENERAL: alert, cooperative, nontoxic, no distress. HEAD: normocephalic, atraumatic EYES: conjunctiva pink without discharge, no external redness or swelling. EARS: no external swelling, no external redness NOSE: atraumatic, no external swelling MOUTH/THROAT: mucous membranes moist and pink NECK: soft, supple, full range of motion, no meningismus. CHEST: no distress, lungs clear and equal throughout. No wheezing, rales, rhonchi. CARDIAC: regular rate and rhythm, no murmur, normal capillary refill, normal pulses. BACK: full range of motion, no CVA tenderness. EXTREMITIES: full range of motion of all extremities. No redness, no swelling. NEURO: alert and oriented 3, no focal deficits, full range of motion of all extremities. PYSCH: appropriate mood, affect. Patient is cooperative. SKIN: pink, warm, dry, no rash. : Performed with female garage door installer at the bedside. Patient noted to have a small ulcerated area to the right labia majora with no surrounding redness. There is no abscess or drainage. Do not appreciate any other vesicular or ulcerated lesions. Course - Re-evaluation Re-evalutation: 12/19/18 13:01 Patient is nontoxic-appearing with stable vitals. Patient here with complaints of blister type lesion to the right labial area. On exam she has an ulcerated lesion in this area. I do not appreciate any other ulcerated lesions or vesicular lesions. The patient does have a history of genital herpes. It is possible this could be a very early outbreak, therefore I will place the patient on acyclovir. She instructed to keep the area clean and dry. Follow-up for any worsening pain, worsening rash, fever, drainage, persistent vomiting, abdominal pain, or for any further concerns. The patient's emergency department workup and current diagnosis were explained to the patient and or family. Follow-up instructions were provided. Medications if prescribed were discussed. Instructions for when to return to the emergency department including specific worrisome symptoms were discussed with the patient and/or family. - Vital Signs Vital signs: Temp Pulse Resp BP Pulse Ox 98.1 F 102 H 16 119/72 97 12/19/18 12:14 12/19/18 12:14 12/19/18 12:14 12/19/18 12:14 12/19/18 12:14 Discharge - Discharge Clinical Impression: Ulceration, Herpes genitalis in women Condition: Stable Disposition: HOME, SELF-CARE Instructions: Acyclovir ([facility]), Genital Herpes ([facility]) Additional Instructions: Take medications as prescribed. Avoid sexual intercourse until this lesion is gone. Follow-up for worsening pain, spreading rash, fever, persistent vomiting, abdominal pain, or for any further concerns. Prescriptions: Acyclovir [Acyclovir 400 mg Tablet] 400 mg PO TID #30 tablet Referrals: [facility] [Provider Group] - Follow up as needed
[2018-12-19 13:44] VITALS: BP 132/64
== END 2018-12-19 13:47 | disposition home or self-care (01) ==
LOC: ER 12:11
DX: A60.00 Herpesviral infection of urogenital system, unspecified (principal); Z88.8 Allergy status to other drugs, medicaments and biological substances
CPT/HCPCS: 99283

== ENCOUNTER 2018-12-28 12:31 | Emergency (ER) | payer SELFPAY ==
[2018-12-28 12:36] VITALS: BP 155/82
--- NOTE | 2018-12-28 13:21 | ER Document Report ---
HPI - HPI Patient complains to provider of: Left eye redness Time Seen by Provider: 12/28/18 13:15 Onset: This morning Onset/Duration: Gradual Pain Level: Denies Context: Presents complaining of left eye redness and tearing. Patient does wear glasses and denies any contact lens use. Patient denies any trauma to the eye or any foreign body. Patient states that she has had allergic conjunctivitis in the past although typically this affects both eyes. Patient is concerned about pinkeye today. Associated Symptoms: denies: Fever Exacerbated by: Denies Relieved by: Denies Similar symptoms previously: Yes Recently seen / treated by doctor: No - ROS ROS below otherwise negative: Yes Systems Reviewed and Negative: Yes All other systems reviewed and negative - EENT EENT: REPORTS: Eye problems - NEURO Neurology: DENIES: Weakness - REPRODUCTIVE Reproductive: DENIES: : - DERM Skin Color: Normal Skin Problems: None Past Medical History - General Information source: Patient - Social History Smoking Status: Never Smoker Frequency of alcohol use: None Drug Abuse: None Occupation: Call center Family History: Reviewed & Not Pertinent Pulmonary Medical History: Reports: Hx Bronchitis Renal/ Medical History: Denies: Hx Peritoneal Dialysis Psychiatric Medical History: Reports: Hx Depression Past Surgical History: Reports: Hx Tonsillectomy - Immunizations Hx Diphtheria, Pertussis, Tetanus Vaccination: Yes Vertical Provider Document - CONSTITUTIONAL Agree With Documented VS: Yes Exam Limitations: No Limitations General Appearance: WD/WN, No Apparent Distress - INFECTION CONTROL TRAVEL OUTSIDE OF THE [place] IN LAST 30 DAYS: No - HEENT HEENT: Atraumatic, Normocephalic Notes: No fluoroscopy seen uptake, no corneal abrasion, ulcer, foreign body or dendrite. Extraocular movements intact. Patient with mild injection of sclera and tearing. No purulent drainage noted. - NECK Neck: Normal Inspection - RESPIRATORY Respiratory: No Respiratory Distress - MUSCULOSKELETAL/EXTREMETIES Musculoskeletal/Extremeties: ROB[place]IX[place] - NEURO Level of Consciousness: Awake, Alert, Appropriate Motor/Sensory: No Motor Deficit - DERM Integumentary: Warm, Dry, No Rash Course - Re-evaluation Re-evalutation: 12/28/18 13:53 Suspect patient likely has a viral conjunctivitis versus an allergic reaction given patient's history of congestion sneezing and history of allergic c onjunctivitis in the past. Patient is concerned about bacterial conjunctivitis at this time. Will cover with antibiotic drops as well as antihistamine eyedrops. - Vital Signs Vital signs: Temp Pulse Resp BP Pulse Ox 98.4 F 91 18 155/82 H 99 12/28/18 12:36 12/28/18 12:36 12/28/18 12:36 12/28/18 12:36 12/28/18 12:36 Discharge - Discharge Clinical Impression: Conjunctivitis Qualifiers: Conjunctivitis type: unspecified Laterality: left Qualified Code(s): H10.9 - Unspecified conjunctivitis Condition: Stable Disposition: HOME, SELF-CARE Instructions: Conjunctivitis, Allergic, Conjunctivitis ([facility]), Eyedrop Use ([facility]) Additional Instructions: Return immediately for any new or worsening symptoms Followup with your primary care provider, call tomorrow to make a followup appointment Follow-up with ophthalmology for any persistent problems. Prescriptions: Olopatadine HCl [Pataday] 1 drop OP DAILY #2.5 ml Polymyxin B Sulfate/Tmp [Polytrim Oph Soln 10 ml] 1 drop LFT_EYE ASDIR #1 bottle Forms: Return to Work Referrals: [facility] [Provider Group] - Follow up as needed
== END 2018-12-28 13:55 | disposition home or self-care (01) ==
LOC: ER 12:31
DX: H10.9 Unspecified conjunctivitis (principal); H57.12 Ocular pain, left eye
CPT/HCPCS: 99283